=== PATIENT | male | born 1985 | race Hispanic/Latino ===

== ENCOUNTER 2017-01-03 11:34 | Observation (INO) | payer SELFPAY ==
[~2017-01-03] VITALS: Ht 175.3 cm; Wt 83.4 kg
[2017-01-03] MEDS ORDERED: ANXIETY PILL PO (11:49)
[2017-01-03 12:21] LABS: HEMATOCRIT 51.2 % (39.0-50.0); HEMOGLOBIN 17.7 g/dl (14.0-18.0); IMMATURE GRANULOCYTES 0.1 % (0.0-1.0); MEAN CELL VOLUME 92.6 fL CALC (80.0-100.0); MEAN CORPUSCULAR HGB CONC 34.6 g/L CALC (32.0-36.0); NEUT# 3.45 thou/uL (1.82-7.42); RED BLOOD COUNT 5.53 mill/uL (4.70-6.10); RED CELL DISTRI WIDTH 12.9 % (11.5-15.5)
[2017-01-03 12:35] LABS: ALBUMIN 5.2 g/dL (3.2-5.0); ALKALINE PHOSPHATASE 59 u/l (38-126); ANION GAP 17 (6-22 (CALC)); BILIRUBIN, TOTAL 1.4 mg/dL (0.0-1.4); BUN 14 mg/dL (9-20); BUN/CREATININE RATIO 13 (12-20 (CALC)); CALCIUM 10.2 mg/dL (8.4-10.2); CARBON DIOXIDE 26 mmol/l (22-30); CHLORIDE 102 mmol/l (95-108); CREATININE 1.1 mg/dL (0.7-1.3); GFR > 60 ML/MIN (>=60 (CALC)); GFR FOR AFR.AMER. > 60 ML/MIN (>=60 (CALC)); GLUCOSE 89 mg/dL (75-110); POTASSIUM 3.8 mmol/l (3.5-5.1); SGOT/AST 39 u/l (17-59); SGPT/ALT 55 u/l (21-72); SODIUM 141 mmol/l (137-146); TOTAL PROTEIN 8.7 g/dL (6.3-8.2)
[2017-01-03 12:47] LABS: MYOGLOBIN 39 ng/mL (0 - 121)
[2017-01-03 15:23] VITALS: BP 127/67
[2017-01-03 20:10] VITALS: BP 108/69
[2017-01-04 00:23] LABS: URINE BILIRUBIN - DIPSTICK NEGATIVE (NEGATIVE); URINE BLOOD DIPSTICK NEGATIVE (NEGATIVE); URINE CLARITY CLEAR; URINE COLOR YELLOW; URINE GLUCOSE - DIPSTICK NEGATIVE (NEGATIVE); URINE KETONE NEGATIVE (NEGATIVE); URINE LEUK ESTERASE NEGATIVE (NEGATIVE); URINE NITRITE - DIPSTICK NEGATIVE (Negative); URINE PROTEIN - DIPSTICK NEGATIVE (NEG-TRACE)
[2017-01-04 00:27] LABS: BARBITURATES NEGATIVE (NEGATIVE); COCAINE NEGATIVE (NEGATIVE); METHADONE NEGATIVE (NEGATIVE); OXCYCODONE NEGATIVE (NEGATIVE); TETRAHYDROCANNABIONOL NEGATIVE (NEGATIVE); TRICYLIC ANTIDEPRESSANTS NEGATIVE (NEGATIVE)
[2017-01-04 01:35] VITALS: BP 109/58
[2017-01-04 05:20] VITALS: BP 98/68
[2017-01-04 06:10] LABS: HEMATOCRIT 51.9 % (39.0-50.0); HEMOGLOBIN 17.7 g/dl (14.0-18.0); IMMATURE GRANULOCYTES 0.3 % (0.0-1.0); MEAN CELL VOLUME 93.2 fL CALC (80.0-100.0); MEAN CORPUSCULAR HGB 31.8 pG CALC (26.0-32.0); MEAN CORPUSCULAR HGB CONC 34.1 g/L CALC (32.0-36.0); NEUT# 3.88 thou/uL (1.82-7.42); RED BLOOD COUNT 5.57 mill/uL (4.70-6.10); RED CELL DISTRI WIDTH 12.8 % (11.5-15.5)
[2017-01-04 06:33] LABS: ANION GAP 17 (6-22 (CALC)); BUN 16 mg/dL (9-20); BUN/CREATININE RATIO 17 (12-20 (CALC)); CALCIUM 9.9 mg/dL (8.4-10.2); CARBON DIOXIDE 23 mmol/l (22-30); CHLORIDE 104 mmol/l (95-108); GFR > 60 ML/MIN (>=60 (CALC)); GFR FOR AFR.AMER. > 60 ML/MIN (>=60 (CALC)); GLUCOSE 97 mg/dL (75-110); POTASSIUM 4.2 mmol/l (3.5-5.1); SODIUM 140 mmol/l (137-146)
[2017-01-04 08:05] VITALS: BP 95/51
[2017-01-04 12:03] LABS: CHOLESTEROL HDL RATIO 3.6 (<4.4 (CALC))
[2017-01-05] MEDS ORDERED: NAPROSYN500 MG PO (21:51)
== END 2017-01-04 10:45 | disposition home or self-care (01) | DRG 313 ==
LOC: ENPENDDIS → ED 11:34 → ED-I 13:55 → ED 14:27 → MS2 14:28
PROVIDERS: Emergency Medicine; Nurse Practitioner Family; ADMIT Internal Medicine; ATTEND Internal Medicine
DX: R07.9 Chest pain, unspecified (principal); Q24.0 Dextrocardia; F41.0 Panic disorder [episodic paroxysmal anxiety]; R06.02 Shortness of breath; Z98.890 Other specified postprocedural states; Z63.9 Problem related to primary support group, unspecified
CPT/HCPCS: G0378

== ENCOUNTER 2017-01-05 20:15 | Emergency (ER) | payer SELFPAY ==
[~2017-01-05] VITALS: Ht 175.3 cm; Wt 76.0 kg
[~2017-01-05 20:15] MED LIST: ANXIETY PILL PO
[2017-01-05] MEDS ORDERED: NAPROSYN500 MG PO (21:51)
[2017-01-05 21:57] VITALS: BP 129/74
== END 2017-01-05 21:57 | disposition home or self-care (01) | DRG 563 ==
LOC: ED 20:15
DX: S93.402A Sprain of unspecified ligament of left ankle, initial encounter (principal); S93.602A Unspecified sprain of left foot, initial encounter; X50.1XXA Overexertion from prolonged static or awkward postures, initial encounter; Y93.67 Activity, basketball; Y92.310 Basketball court as the place of occurrence of the external cause

== ENCOUNTER 2018-01-12 09:26 | Emergency (ER) | payer BC ==
[~2018-01-12] VITALS: Ht 175.3 cm; Wt 90.0 kg
[~2018-01-12 09:26] MED LIST changes: +NAPROSYN500 MG PO
[2018-01-12] MEDS ORDERED: ASPIRIN ADULT L81 MG PO (10:55)
[2018-01-12] MEDS ORDERED: FUROSEMIDE20 MG PO (10:56)
[2018-01-12] MEDS ORDERED: LOSARTAN POT50 MG PO (10:56)
[2018-01-12] MEDS ORDERED: [UNRECOGNIZED DRUG - OTHER] PO (10:57)
[2018-01-12 11:01] LABS: HEMATOCRIT 48.7 % (39.0-50.0); HEMOGLOBIN 16.7 g/dl (14.0-18.0); IMMATURE GRANULOCYTES 0.4 % (0.0-5.0); MEAN CELL VOLUME 93.1 fL CALC (80.0-100.0); MEAN CORPUSCULAR HGB 31.9 pG CALC (26.0-32.0); MEAN CORPUSCULAR HGB CONC 34.3 g/L CALC (32.0-36.0); NEUT# 3.48 thou/uL (1.82-7.42); RED BLOOD COUNT 5.23 mill/uL (4.70-6.10); RED CELL DISTRI WIDTH 12.6 % (11.5-15.5)
[2018-01-12 11:16] LABS: ALKALINE PHOSPHATASE 62 u/l (38-126); ANION GAP 14 (6-22 (CALC)); BILIRUBIN, TOTAL 1.2 mg/dL (0.0-1.4); BUN 20 mg/dL (9-20); BUN/CREATININE RATIO 26 (12-20 (CALC)); CARBON DIOXIDE 26 mmol/l (22-30); CHLORIDE 103 mmol/l (95-108); CREATININE 0.8 mg/dL (0.7-1.3); GFR > 60 ML/MIN (>=60 (CALC)); GFR FOR AFR.AMER. > 60 ML/MIN (>=60 (CALC)); SGOT/AST 30 u/l (17-59); SGPT/ALT 47 u/l (21-72); SODIUM 138 mmol/l (137-146); TOTAL PROTEIN 8.3 g/dL (6.3-8.2)
[2018-01-12 12:02] VITALS: BP 113/64
== END 2018-01-12 12:07 | disposition home or self-care (01) | DRG 308 ==
LOC: ED 09:26
PROVIDERS: Emergency Medicine
DX: R00.2 Palpitations (principal); Q23.4 Hypoplastic left heart syndrome; Z95.1 Presence of aortocoronary bypass graft

== ENCOUNTER 2018-01-19 16:48 | Emergency (ER) | payer BC ==
[~2018-01-19] VITALS: Ht 175.3 cm; Wt 90.0 kg
[~2018-01-19 16:48] MED LIST changes: +ASPIRIN ADULT L81 MG PO; +FUROSEMIDE20 MG PO; +LOSARTAN POT50 MG PO; +[UNRECOGNIZED DRUG - OTHER] PO
[2018-01-19 17:57] LABS: HEMATOCRIT 48.5 % (39.0-50.0); HEMOGLOBIN 16.9 g/dl (14.0-18.0); IMMATURE GRANULOCYTES 0.4 % (0.0-5.0); MEAN CELL VOLUME 91.7 fL CALC (80.0-100.0); MEAN CORPUSCULAR HGB 31.9 pG CALC (26.0-32.0); MEAN CORPUSCULAR HGB CONC 34.8 g/L CALC (32.0-36.0); NEUT# 6.33 thou/uL (1.82-7.42); RED BLOOD COUNT 5.29 mill/uL (4.70-6.10); RED CELL DISTRI WIDTH 12.6 % (11.5-15.5)
[2018-01-19 18:14] LABS: ALBUMIN 5.3 g/dL (3.2-5.0); ALKALINE PHOSPHATASE 69 u/l (38-126); ANION GAP 19 (6-22 (CALC)); BILIRUBIN, TOTAL 1.1 mg/dL (0.0-1.4); BUN 19 mg/dL (9-20); BUN/CREATININE RATIO 22 (12-20 (CALC)); CARBON DIOXIDE 22 mmol/l (22-30); CHLORIDE 103 mmol/l (95-108); CREATININE 0.9 mg/dL (0.7-1.3); GFR > 60 ML/MIN (>=60 (CALC)); GFR FOR AFR.AMER. > 60 ML/MIN (>=60 (CALC)); POTASSIUM 3.9 mmol/l (3.5-5.1); SGOT/AST 33 u/l (17-59); SGPT/ALT 49 u/l (21-72); SODIUM 140 mmol/l (137-146); TOTAL PROTEIN 9.1 g/dL (6.3-8.2)
[2018-01-19 18:15] VITALS: BP 103/55
[2018-01-19] MEDS ORDERED: LOPRESSOR25 M1 PO (18:18)
[2018-01-19] MEDS ORDERED: KLONOPIN0.5 MG PO (18:18)
== END 2018-01-19 18:45 | disposition home or self-care (01) | DRG 308 ==
LOC: ED 16:48
PROVIDERS: Emergency Medicine
DX: R00.2 Palpitations (principal); Q23.4 Hypoplastic left heart syndrome; F41.9 Anxiety disorder, unspecified; Z95.1 Presence of aortocoronary bypass graft

== ENCOUNTER 2018-07-21 20:59 | Emergency (ER) | payer BC ==
[~2018-07-21] VITALS: Ht 175.3 cm; Wt 84.0 kg
[~2018-07-21 20:59] MED LIST changes: +KLONOPIN0.5 MG PO; +LOPRESSOR25 M1 PO
[2018-07-21 21:29] LABS: HEMATOCRIT 48.4 % (39.0-50.0); HEMOGLOBIN 16.9 g/dl (14.0-18.0); IMMATURE GRANULOCYTES 0.3 % (0.0-5.0); MEAN CELL VOLUME 93.4 fL CALC (80.0-100.0); MEAN CORPUSCULAR HGB 32.6 pG CALC (26.0-32.0); MEAN CORPUSCULAR HGB CONC 34.9 g/L CALC (32.0-36.0); NEUT# 4.1 thou/uL (1.82-7.42); RED BLOOD COUNT 5.18 mill/uL (4.70-6.10); RED CELL DISTRI WIDTH 12.6 % (11.5-15.5)
[2018-07-21 21:58] LABS: BARBITURATES NEGATIVE (NEGATIVE); COCAINE NEGATIVE (NEGATIVE); METHADONE NEGATIVE (NEGATIVE); OXCYCODONE NEGATIVE (NEGATIVE); TETRAHYDROCANNABIONOL NEGATIVE (NEGATIVE); TRICYLIC ANTIDEPRESSANTS NEGATIVE (NEGATIVE); URINE BILIRUBIN - DIPSTICK NEGATIVE (NEGATIVE); URINE BLOOD DIPSTICK NEGATIVE (NEGATIVE); URINE COLOR YELLOW; URINE GLUCOSE - DIPSTICK NEGATIVE (NEGATIVE); URINE KETONE NEGATIVE (NEGATIVE); URINE LEUK ESTERASE NEGATIVE (NEGATIVE); URINE NITRITE - DIPSTICK NEGATIVE (Negative); URINE PH 5.5 (4.5-8.0); URINE PROTEIN - DIPSTICK NEGATIVE (NEG-TRACE); URINE SPECIFIC GRAVITY 1.025; URINE UROBILINOGEN - DIPSTICK 0.2 E.U./dL (0.2)
[2018-07-21 22:11] LABS: ALBUMIN 5.6 g/dL (3.2-5.0); ALKALINE PHOSPHATASE 64 u/l (38-126); ANION GAP 18 (6-22 (CALC)); BUN 23 mg/dL (9-20); BUN/CREATININE RATIO 27 (12-20 (CALC)); CARBON DIOXIDE 24 mmol/l (22-30); CHLORIDE 103 mmol/l (95-108); CREATININE 0.8 mg/dL (0.7-1.3); ETHYL ALCOHOL 0 mg/dl (0-30); GFR > 60 ML/MIN (>=60 (CALC)); GFR FOR AFR.AMER. > 60 ML/MIN (>=60 (CALC)); SGOT/AST 35 u/l (17-59); SODIUM 142 mmol/l (137-146)
[2018-07-21 22:33] LABS: MYOGLOBIN 34 ng/mL (0 - 121)
[2018-07-21 23:45] VITALS: BP 138/70
== END 2018-07-21 23:45 | disposition home or self-care (01) | DRG 310 ==
LOC: ED 20:59
PROVIDERS: Emergency Medicine
DX: R00.2 Palpitations (principal); F41.9 Anxiety disorder, unspecified; Z95.1 Presence of aortocoronary bypass graft; Z87.74 Personal history of (corrected) congenital malformations of heart and circulatory system
CPT/HCPCS: J2060

== ENCOUNTER 2018-11-09 06:01 | Emergency (ER) | payer SELFPAY ==
[~2018-11-09] VITALS: Ht 175.3 cm; Wt 86.3 kg
[2018-11-09 06:49] LABS: HEMATOCRIT 52.2 % (39.0-50.0); HEMOGLOBIN 17.8 g/dl (14.0-18.0); IMMATURE GRANULOCYTES 0.4 % (0.0-5.0); MEAN CELL VOLUME 93.4 fL CALC (80.0-100.0); MEAN CORPUSCULAR HGB 31.8 pG CALC (26.0-32.0); MEAN CORPUSCULAR HGB CONC 34.1 g/L CALC (32.0-36.0); NEUT# 3.75 thou/uL (1.82-7.42); RED BLOOD COUNT 5.59 mill/uL (4.70-6.10)
[2018-11-09 07:03] LABS: ALBUMIN 5.2 g/dL (3.2-5.0); ALKALINE PHOSPHATASE 63 u/l (38-126); ANION GAP 17 (6-22 (CALC)); BILIRUBIN, TOTAL 1.1 mg/dL (0.0-1.4); BUN 23 mg/dL (9-20); BUN/CREATININE RATIO 30 (12-20 (CALC)); CARBON DIOXIDE 23 mmol/l (22-30); CHLORIDE 105 mmol/l (95-108); CREATININE 0.8 mg/dL (0.7-1.3); GFR > 60 ML/MIN (>=60 (CALC)); GFR FOR AFR.AMER. > 60 ML/MIN (>=60 (CALC)); POTASSIUM 3.9 mmol/l (3.5-5.1); SGOT/AST 31 u/l (17-59); SODIUM 141 mmol/l (137-146); TOTAL PROTEIN 8.6 g/dL (6.3-8.2)
[2018-11-09 07:13] LABS: URINE BILIRUBIN - DIPSTICK NEGATIVE (NEGATIVE); URINE BLOOD DIPSTICK TRACE-INTACT (NEGATIVE); URINE COLOR YELLOW; URINE GLUCOSE - DIPSTICK NEGATIVE (NEGATIVE); URINE KETONE NEGATIVE (NEGATIVE); URINE LEUK ESTERASE NEGATIVE (NEGATIVE); URINE NITRITE - DIPSTICK NEGATIVE (Negative); URINE PROTEIN - DIPSTICK TRACE mg/dL (NEG-TRACE); URINE SPECIFIC GRAVITY >=1.030; URINE UROBILINOGEN - DIPSTICK 0.2 E.U./dL (0.2)
[2018-11-09 07:15] LABS: MYOGLOBIN 22 ng/mL (0 - 121)
[2018-11-09 07:16] LABS: BARBITURATES NEGATIVE (NEGATIVE); COCAINE NEGATIVE (NEGATIVE); METHADONE NEGATIVE (NEGATIVE); OXCYCODONE NEGATIVE (NEGATIVE); TETRAHYDROCANNABIONOL NEGATIVE (NEGATIVE); TRICYLIC ANTIDEPRESSANTS NEGATIVE (NEGATIVE)
[2018-11-09 10:59] VITALS: BP 116/65
== END 2018-11-09 11:08 | disposition home or self-care (01) | DRG 204 ==
LOC: ED 06:01
PROVIDERS: Emergency Medicine
DX: R06.02 Shortness of breath (principal); Z87.74 Personal history of (corrected) congenital malformations of heart and circulatory system
CPT/HCPCS: J1644; Q9967

== ENCOUNTER 2022-09-08 23:27 | Emergency (ER) | payer SELFPAY ==
[~2022-09-08] VITALS: Ht 175.3 cm; Wt 100.0 kg
[2022-09-08 23:31] VITALS: BP 155/75
[2022-09-08 23:34] VITALS: BP 132/77
[2022-09-08 23:53] LABS: BASO% 0.5 % (0-3); EOS% 3.2 % (0-8); HEMATOCRIT 48.1 % (39.0-50.0); HEMOGLOBIN 16.4 g/dl (14.0-18.0); IMMATURE GRANULOCYTES 0.1 % (0.0-5.0); LYMPH% 40.6 % (15-41); MEAN CELL VOLUME 93.4 fL CALC (80.0-100.0); MEAN CORPUSCULAR HGB 31.8 pG CALC (26.0-32.0); MEAN CORPUSCULAR HGB CONC 34.1 g/dL CAL (32.0-36.0); NEUT# 4.31 thou/uL (1.82-7.42); NEUT% 48.6 % (42-76); RED BLOOD COUNT 5.15 mill/uL (4.70-6.10); RED CELL DISTRI WIDTH 12.7 % (11.5-15.5)
[2022-09-09] VITALS: BP 111/71
[2022-09-09] MEDS ORDERED: ALPRAZOLAM1 M1 PO (00:02)
[2022-09-09 00:10] LABS: ALBUMIN 5.2 g/dL (3.2-5.0); ALKALINE PHOSPHATASE 52 u/l (38-126); ANION GAP 18 (6-22 (CALC)); BILIRUBIN, TOTAL 1.1 mg/dL (0.2-1.3); BUN 17 mg/dL (9-20); BUN/CREATININE RATIO 19 (12-20 (CALC)); CARBON DIOXIDE 22 mmol/l (22-30); CHLORIDE 103 mmol/l (95-108); CREATININE 0.9 mg/dL (0.7-1.3); GFR FOR AFR.AMER. > 60 ML/MIN (>=60 (CALC)); GFR OTHER RACES > 60 ML/MIN (>=60 (CALC)); POTASSIUM 3.8 mmol/l (3.5-5.1); SGOT/AST 47 u/l (17-59); SODIUM 140 mmol/l (137-146); TOTAL PROTEIN 8.9 g/dL (6.3-8.2)
[2022-09-09 00:30] VITALS: BP 116/66
[2022-09-09 00:47] VITALS: BP 116/66
== END 2022-09-09 01:17 | disposition home or self-care (01) | DRG 880 ==
LOC: ED 23:27
PROVIDERS: Family Medicine
DX: F41.0 Panic disorder [episodic paroxysmal anxiety] (principal); R00.0 Tachycardia, unspecified